=== PATIENT | male | born 1955 | race Caucasian/White ===

== ENCOUNTER 2017-12-05 22:53 | Emergency (ER) | payer MEDICARE, OTHER ==
[~2017-12-05] VITALS: Ht 177.8 cm; Wt 89.4 kg
[~2017-12-05 22:53] MED LIST: BACTRIM DS TAB1 EACH PO; BYSTOLIC10 MG PO; CLONAZEPAM0.5 MG PO; LEVAQUIN500 MG PO; LIVALO2 MG PO; LOSARTAN POTAS100 MG PO; LYRICA75 MG PO; NIFEDICAL XL30 MG PO; NIFEDIPINE20 MG PO; PERCOCET 10-321 EACH PO; PROCARDIA XL30 MG PO; ROPINIROLE HCL1 MG PO; THEO-24400 MG PO; THEOPHYLLINE A200 MG PO; VITAMIN D1000 UNI1 PO; VITAMIN D2000 UNI1 PO
--- OUTSIDE RECORDS SUMMARY | 2017-12-05 22:56 | XMS REPORT | Clinical Summary ---
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 Disp. Refills Start End Date Status Date pregabalin (LYRICA) 300 Take 300 mg by mouth 2 Active MG capsule (two) times daily. rOPINIRole (REQUIP) 3 MG Take 3 mg by mouth 2 Active tablet (two) times daily. clonazePAM (KLONOPIN) 0.5 Take 0.5 mg by mouth 2 Active MG tablet (two) times daily as needed for Anxiety. oxyCODONE-acetaminophen Take 1 tablet by mouth Active (PERCOCET) 10-325 mg per every 8 (eight) hours as tablet needed for Pain. losartan (COZAAR) 100 MG Take 1 tablet (100 mg 3 tablet 3 06/17/20 Active tablet total) by mouth daily. 15 nebivolol (BYSTOLIC) 5 MG Take 1 tablet (5 mg 30 tablet 3 06/17/20 Active tablet total) by mouth daily. 15 NIFEdipine (PROCARDIA-XL) Take 90 mg by mouth Active 90 MG (OSM) 24 hr tablet daily. theophylline (GAYLE-24) Take 400 mg by mouth Active 200 MG 24 hr capsule daily. cholecalciferol, vitamin Take 2,000 Units by mouth Active D3, 2,000 unit Tab daily. pitavastatin (LIVALO) 2 Take 2 mg by mouth daily. Active mg Tab tablet ascorbic acid (VITAMIN C) Take 1,000 mg by mouth Active 1000 MG tablet daily. pantoprazole (PROTONIX) Take 1 tablet (40 mg 30 tablet 0 07/17/20 Active 40 MG tablet total) by mouth daily. 16 albuterol-ipratropium Inhale 2 puffs by mouth 1 Inhaler 0 03/11/20 03/11/20 (COMBIVENT) 18-103 via inhaler 4 (four) 16 17 mcg/actuation inhaler times daily. cetirizine (ZYRTEC) 10 MG Take 1 tablet (10 mg 15 tablet 0 07/17/20 07/17/20 tablet total) by mouth daily. 16 17 fluticasone (FLONASE) 50 1 spray by Nasal route 16 g 0 07/17/20 mcg/actuation nasal spray daily. 16 17 Active Problems Problem Noted Date Uremia 07/08/2016 Acute renal failure (ARF) ([facility]) 07/08/2016 Hyponatremia 03/10/2016 COPD with exacerbation ([facility]) 03/09/2016 Intermittent diarrhea 03/09/2016 Elevated serum creatinine 03/09/2016 Benign essential HTN Emphysema lung ([facility]) On home O2 Overview: 4L/NC--as needed Ex-smoker Intermittent dysphagia CKD (chronic kidney disease) stage 4, GFR 15-29 ml/min ([facility]) Low testosterone level in male Panic anxiety syndrome Overview: Panic attack once every 6 months. Mediastinal lymphadenopathy Chronic back pain Obstructive sleep apnea treated with BiPAP Family History Medical History Relation Name Comments Colon cancer Father Hypertension Father Parkinsonism Father Colon cancer Maternal Grandfather Diabetes Maternal Grandmother COPD Mother Cancer Mother melanoma & basal cell Hypertension Mother Osteoarthritis Mother Hypertension Sister Migraines Sister Hypertension Sister Relation Name Status Comments Father Parkinson's complications (Age 72) Maternal Grandfather Maternal Grandmother Mother Alive Sister Alive Sister Alive Sister Sister Social History Tobacco Use Types Packs/Day Years Used Date Former Smoker Cigarettes 3 30 Quit: 09/13/2000 Smokeless Tobacco: Never Used Alcohol Use Drinks/Week oz/Week Comments Yes 8 Cans of 4.8 started back drinking x2 weeks beer Sex Assigned at Date Recorded Not on file Last Filed Vital Signs Not on file Plan of Treatment Not on file Results Not on fileafter 12/04/2016
[2017-12-06 00:11] LABS: BASOPHILS % 0.4 % (0.0-1.0); EOSINOPHILS # (AUTO) 0.2 (0.0-0.4); EOSINOPHILS % 2.9 % (0.0-6.0); HEMATOCRIT 48.3 % (38.2-49.6); HEMOGLOBIN 16.5 g/dL (14.0-18.0); LYMPHOCYTES # (AUTO) 0.8 (1.0-3.2); LYMPHOCYTES % 14.3 % (18.0-39.1); MEAN CORPUSCULAR HEMOGLOBIN 30.2 pg (28-32); MEAN CORPUSCULAR HGB CONC 34.2 g/dL (31-35); MEAN CORPUSCULAR VOLUME 88.3 fL (81-99); MONOCYTES # (AUTO) 0.7 (0.2-0.8); MONOCYTES % 12.7 % (4.4-11.3); NEUTROPHILS # (AUTO) 3.8 (2.1-6.9); NEUTROPHILS % 69.3 % (38.7-80.0); PLATELET COUNT 157 x10e3/uL (140-360); RED BLOOD COUNT 5.47 x10e6/uL (4.3-5.7); RED CELL DISTRIBUTION WIDTH 13.1 % (11.7-14.4)
[2017-12-06 00:17] LABS: CLARITY,URINE CLEAR (CLEAR); COLOR,URINE YELLOW (YELLOW)
[2017-12-06 00:18] LABS: BILIRUBIN,URINE NEGATIVE (NEGATIVE); KETONES,URINE NEGATIVE (NEGATIVE); LEUKOCYTE ESTERASE ,URINE NEGATIVE (NEGATIVE); NITRITE,URINE NEGATIVE (NEGATIVE); PROTEIN,URINE DIPSTICK NEGATIVE (NEGATIVE); URINE UROBILINOGEN 0.2 mg/dL (0.2 - 1)
[2017-12-06 00:28] LABS: INFLUENZAE A&B ANTIGEN (RAPID) POSITIVE FLU B (NEGATIVE); STREPTOCOCCUS GRP A ANTIGEN NEGATIVE (NEGATIVE)
[2017-12-06 00:29] LABS: ALBUMIN 4.1 g/dL (3.5-5.0); ALBUMIN/GLOBULIN RATIO 1.2 (0.8-2.0); ANION GAP 15.9 mmol/L (8-16); BACTERIA,URINE RARE /HPF; CALCIUM 9.1 mg/dL (8.4-10.2); CREATININE, SERUM 1.93 mg/dL (0.72-1.25); EPITHELIAL CELLS,URINE RARE /LPF; POTASSIUM 3.9 mmol/L (3.5-5.1); RBC,URINE 0-5 /HPF (0-5); WBC,URINE (MAN) 0-5 /HPF (0-5)
--- NOTE | 2017-12-06 00:42 | Diagnostic Imaging Report ---
CHEST 2 VIEWS, 6 Technique: CHEST 2 VIEWS Comparison: 09/24/2016 Clinical history: Fever, cough DISCUSSION: Stable appearance of the heart, mediastinum, lungs and pleural spaces. Partially imaged ACDF. IMPRESSION: No acute abnormality Signed by: Dr Liss Jones MD on 12/06/2017 12:39 AM
== END 2017-12-06 01:10 | disposition home or self-care (01) ==
LOC: ER 22:53
DX: R50.9 Fever, unspecified (principal); R05 Cough; J11.1 Influenza due to unidentified influenza virus with other respiratory manifestations; J31.0 Chronic rhinitis; E78.5 Hyperlipidemia, unspecified; J44.9 Chronic obstructive pulmonary disease, unspecified; Z87.891 Personal history of nicotine dependence
CPT/HCPCS: 36415; 71046; 80053; 81001; 83518; 85025; 87070; 87400; 99284

== ENCOUNTER → 2018-02-17 | Day surgery (SDC) | payer MEDICARE ==
[2018-02-14 10:37] LABS: BASOPHILS % 0.3 % (0.0-1.0); EOSINOPHILS # (AUTO) 0.1 (0.0-0.4); EOSINOPHILS % 1.5 % (0.0-6.0); HEMATOCRIT 53.2 % (38.2-49.6); HEMOGLOBIN 18.4 g/dL (14.0-18.0); LYMPHOCYTES # (AUTO) 1.6 (1.0-3.2); LYMPHOCYTES % 22.2 % (18.0-39.1); MEAN CORPUSCULAR HEMOGLOBIN 30.5 pg (28-32); MEAN CORPUSCULAR HGB CONC 34.6 g/dL (31-35); MEAN CORPUSCULAR VOLUME 88.2 fL (81-99); MONOCYTES # (AUTO) 0.6 (0.2-0.8); MONOCYTES % 8.7 % (4.4-11.3); NEUTROPHILS # (AUTO) 4.8 (2.1-6.9); NEUTROPHILS % 66.9 % (38.7-80.0); PLATELET COUNT 191 x10e3/uL (140-360); RED BLOOD COUNT 6.03 x10e6/uL (4.3-5.7); RED CELL DISTRIBUTION WIDTH 13.1 % (11.7-14.4)
[~2018-02-17] MED LIST changes: +AMLODIPINE BESY10 MG PO; +ANASTROZOLE1 MG PO; +FENTANYL CITRATE/PF 100MCG/2 ML INJ ONE; +GABAPENTIN400 MG PO; +HYOSCYAMINE SULFATE 0.5 MG/ML AMP ONE; +LOSARTAN-HCTZ1 EAC1 PO; +MIDAZOLAM HCL 2 MG/2 ML VIAL ONE; +MIRAPEX1 MG PO; +PROPOFOL IV EMULSION 10 MG/ML 50 ML VIAL ONE; +TESTOSTERO100 MG/1 M PO
--- NOTE | 2018-02-17 15:50 | Operative Report ---
DATE OF PROCEDURE: February 17, 2018 REFERRING PHYSICIAN: Rebeca Gaitan MD PROCEDURE PERFORMED: Colonoscopy and polypectomy. INDICATIONS FOR COLONOSCOPY: Colorectal cancer screening. MEDICATION: Patient was done under MAC. Please see anesthesiologist's note. PROCEDURE: With the patient in the left lateral decubitus position, the flexible fiberoptic Olympus colonoscope was inserted into the rectum with ease and advanced all the way to the cecum. A minute polyp was hot biopsied from the cecum. The ascending colon, transverse and descending grossly appeared to be within normal limits. Minimal diverticulosis was noted in the sigmoid colon. One polyp was snared and 1 polyp was hot biopsied from the sigmoid. One polyp was hot biopsied in the rectum. The scope was then retroflexed into the distal rectum, and small internal hemorrhoids were noted, none of which was actively bleeding. The scope was then straightened out. It was subsequently withdrawn. Patient tolerated the procedure well. IMPRESSION 1. Cecal polyp, hot biopsied. 2. Sigmoid colon polyps times 2, one snared and one hot biopsied. 3. Diverticulosis. 4. Rectal polyp, hot biopsied. 5. Internal hemorrhoids, none actively bleeding. PLAN: Follow up histology. Initiate high-fiber, low-fat diet. Initiate high-fiber supplement. Patient will need a followup colonoscopy in 3 years. Job#: [id number] cc:REBECA GAITAN MD
== END | disposition home or self-care (01) ==
LOC: OR 10:15
PROVIDERS: ATTEND Internal Medicine Gastroenterology
DX: Z12.11 Encounter for screening for malignant neoplasm of colon (principal); I10 Essential (primary) hypertension; J44.9 Chronic obstructive pulmonary disease, unspecified; I69.354 Hemiplegia and hemiparesis following cerebral infarction affecting left non-dominant side; D12.0 Benign neoplasm of cecum; K63.5 Polyp of colon; K57.30 Diverticulosis of large intestine without perforation or abscess without bleeding; K62.1 Rectal polyp; K64.8 Other hemorrhoids; Z01.812 Encounter for preprocedural laboratory examination
CPT/HCPCS: 36415; 45384; 45385; 85025; 93005; J1980; J2250; 45378